=== PATIENT | female | born 1965 | race African-American/Black ===

== ENCOUNTER 2016-12-03 08:16 | Emergency (ER) | payer MEDICARE, MEDICAID ==
[~2016-12-03] VITALS: Ht 162.6 cm; Wt 105.0 kg
[~2016-12-03 08:16] MED LIST: HYDR-3366 PO; PERC10TA27 PO
[2016-12-03 08:18] VITALS: BP 154/67; PULSE 70; RESP 20; TEMP 98; O2SAT 98
[2016-12-03] MEDS ORDERED: PHEN37.54 PO (08:35)
[2016-12-03] MEDS ORDERED: PHEN37.5 (08:35)
[2016-12-03] MEDS ORDERED: CELE20TA PO (08:35)
[2016-12-03] MEDS ORDERED: METR-1 PO (08:43)
[2016-12-03] MEDS ORDERED: MUPI2%T TOPICAL (08:43)
--- NOTE | 2016-12-03 08:43 | PD ---
HPI Chief Complaint: GI Complaint Time Seen by Provider: 08:39 Travel History International Travel<30 days: No Contact w/Intl Traveler<30days: No Traveled to known affect area: No History of Present Illness HPI This is a 51-year-old female who presents to the emergency department having sustained a bite on her nose yesterday. She sees 2 little bite antonio on the left side of her nose and she's had some local swelling on the left side of her face, constant, moderate severity, associated with some itching. She also has developed diarrhea that started last evening. She says her stools been watery. She had several episodes last night and then 2 this morning. She's had some subjective chills but no fever, abdominal pain or vomiting. PFSH Past Medical History Arthritis: Yes Asthma: Yes Autoimmune Disease: No Blood Disorders: No Anxiety: No Depression: No Heart Rhythm Problems: Yes (MURMUR) Cancer: No Cardiac Catheterization: No Cardiovascular Problems: Yes (htn) High Cholesterol: No Chemotherapy: No Chest Pain: Yes Congestive Heart Failure: No COPD: No Cerebrovascular Accident: No Diabetes: Yes (hx of, resolved, per pt) Diminished Hearing: No Endocrine: Yes (hx of diabetes) Gastrointestinal Disorders: Yes GERD: Yes (HX OF) Glaucoma: No Genitourinary: No Headaches: Yes Hepatitis: No Hiatal Hernia: No Hypertension: Yes Immune Disorder: No Insomnia: Yes Musculoskeletal: Yes (BACK/NECK ) Neurologic: No Psychiatric: No Reproductive: Yes Respiratory: Yes (asthma) Immunizations Current: Yes Myocardial Infarction: No Radiation Therapy: No Seizures: No Sleep Apnea: Yes Thyroid Disease: No Menopausal: Yes : 2 Para: 1 Miscarriage: 1 Ovarian Cysts: Yes Past Surgical History Abdominal Surgery: Yes (lap cyndee,GASTRIC SLEAVE 02/2014) AICD: No Cardiac Surgery: No Section: Yes (1990) Cholecystectomy: Yes Coronary Artery Bypass Graft: No Ear Surgery: No Endocrine Surgery: No Eye Surgery: No Genitourinary Surgery: No Gynecologic Surgery: Yes (hysterectomy ) Hysterectomy: Yes Joint Replacement: No Oral Surgery: No Pacemaker: No Thoracic Surgery: No Other Surgery: Yes (GASTRIC SLEEVE 01/22/14) Social History Alcohol Use: Yes (occasionally) Tobacco Use: No Substance Use: No Allergies-Medications (Allergen,Severity, Reaction): Coded Allergies: Bentyl (Verified Allergy, Severe, MUSCLE SPASM, 12/03/16) Lortab (Verified Allergy, Intermediate, Dizziness, 12/03/16) SLURRED SPEACH,PASSED OUT Reported Meds & Prescriptions Reported Meds & Active Scripts Active Reported Phentermine (Phentermine HCl) 37.5 Mg Cap 37.5 Mg PO DAILY Celexa (Citalopram Hydrobromide) 20 Mg Tab 20 Mg PO DAILY Review of Systems Except as stated in HPI: all other systems reviewed are Neg Physical Exam Narrative GENERAL:Well appearing, no acute distress SKIN: 2 small areas of abrasion on the left nose with 3 cm of surrounding erythema and warmth HEAD: Atraumatic. Normocephalic. EYES: Pupils equal and round. No injection or drainage. ENT: Moist mucous membranes NECK: Trachea midline. CARDIOVASCULAR: Regular rate and rhythm. No murmur appreciated. RESPIRATORY: Clear to auscultation. Breath sounds equal bilaterally. GASTROINTESTINAL: Abdomen soft, non-tender, nondistended. MUSCULOSKELETAL: No obvious deformities. NEUROLOGICAL: Awake and alert. No obvious cranial nerve deficits. Moving all extremities. PSYCHIATRIC: Appropriate mood and affect; insight and judgment normal. Data Data Last Documented VS Vital Signs Date Time Temp Pulse Resp B/P Pulse Ox O2 Delivery O2 Flow Rate FiO2 12/03/16 08:36 17 12/03/16 08:18 98.0 70 154/67 98 Room Air MDM Medical Decision Making Medical Screen Exam Complete: Yes Emergency Medical Condition: Yes Interpretation(s) Afebrile, no tachycardia Differential Diagnosis C. difficile colitis, viral gastroenteritis, cellulitis, insect bite, sepsis Narrative Course This is a 51-year-old female who presents to the emergency department having sustained an insect bite to her left nose with associated cellulitis and also having concomitant initiation of diarrhea since yesterday. She did just complete a course of ciprofloxacin for sinusitis. I'm concerned that diarrhea may be C. difficile colitis. She is unable to give me a stool sample here in the emergency department. She is otherwise very well-appearing, well-hydrated and nontoxic with normal vital signs. I think she is appropriate for outpatient treatment with Flagyl and topical Bactroban for her nose. I don't think any tests are warranted at this time but if her symptoms worsen I told her to come back to the emergency department at which time we would do blood work. Diagnosis Primary Impression: Diarrhea Qualified Code: A09 - Diarrhea of presumed infectious origin Additional Impression: Insect bite Qualified Code: W57.XXXA - Insect bite, initial encounter Patient Instructions: General Instructions Additional Instructions: If you develop lightheadedness, dizziness, persistent vomiting, inability to eat , or severe abdominal pain return to the emergency department. Followup with your primary care physician in 2-3 days if your symptoms have not resolved. Wash your hands aggressively after using the restroom as to not spread your illness to others. Do not return to work until your symptoms have resolved. Med/Other Pt SpecificInfo: Prescription(s) given Scripts Mupirocin Topical (Bactroban Topical)2 % Cream1 Applic TOPICAL BID #1 TUBE Ref 0 Prov:Juliette Finn MD 12/03/16 Metronidazole (Flagyl)500 Mg Yoy407 Mg PO TID 10 Days Prov:Juliette Finn MD 12/03/16 Disposition: 01 DISCHARGE HOME Condition: Stable Juliette Finn MD Dec 03, 2016 08:43
[2016-12-03 08:49] VITALS: BP 148/77; TEMP 97.8
== END 2016-12-03 08:49 | disposition home or self-care (01) ==
LOC: NEPC 08:16
DX: A09 Infectious gastroenteritis and colitis, unspecified (principal); S00.36XA Insect bite (nonvenomous) of nose, initial encounter; L03.818 Cellulitis of other sites; I10 Essential (primary) hypertension; G47.30 Sleep apnea, unspecified; W57.XXXA Bitten or stung by nonvenomous insect and other nonvenomous arthropods, initial encounter; Z87.39 Personal history of other diseases of the musculoskeletal system and connective tissue; Z87.09 Personal history of other diseases of the respiratory system; Z86.79 Personal history of other diseases of the circulatory system; Z87.19 Personal history of other diseases of the digestive system; Z87.42 Personal history of other diseases of the female genital tract
CPT/HCPCS: 99284

== ENCOUNTER 2017-05-13 19:28 | Observation (INO) | payer MEDICARE, MEDICAID ==
[~2017-05-13] VITALS: Ht 165.1 cm; Wt 120.0 kg
[~2017-05-13 19:28] MED LIST changes: +CELE20TA PO; -HYDR-3366 PO; +METR-1 PO; +MUPI2%T TOPICAL; -PERC10TA27 PO; +PHEN37.54 PO
[2017-05-13 19:31] VITALS: BP 193/142; PULSE 68; RESP 20; TEMP 98.8; O2SAT 99
--- NOTE | 2017-05-13 19:53 | PD ---
Physical Exam Date Seen by Provider: May 13, 2017 Time Seen by Provider: 19:50 Narrative 52-year-old Afro-[place] female presents the right Department with sudden onset of the patient's, shortness of breath, and generalized weakness. Patient states his status post bariatric surgery and has had trouble with potassium being low in the past which made her feel like this. She denies pain. She continues to have chest pressure or shortness of breath however. She does have a history of asthma but does not feel wheezy. Patient denies recent fever, chills, or other symptoms. Patient is allergic to acetaminophen, dicyclomine, and hydrocodone. Vital signs are reviewed and felt to be stable. Patient is taken directly back to a medical bed. Data Data Last Documented VS Vital Signs Date Time Temp Pulse Resp B/P (MAP) Pulse Ox O2 Delivery O2 Flow Rate FiO2 05/13/17 19:31 98.8 68 20 193/142 (159) 99 Room Air [facility] Medical Record Reviewed: Yes Supervised Visit with JUAN MIGUEL: Yes Condition: Stable Krunal Baugh May 13, 2017 19:53
[2017-05-13 20:10] VITALS: BP 150/100; PULSE 77; RESP 20; O2SAT 100
[2017-05-13 20:11] VITALS: O2SAT 100
--- NOTE | 2017-05-13 20:35 | RADRPT ---
EXAM DATE/TIME: 05/13/2017 20:14 [facility] COMPARISON: CHEST SINGLE AP, July 13, 2016, 19:30. INDICATIONS : Shortness of breath and chest palpitations today. MEDICAL HISTORY : Cardiovascular disease. Hypertension. Diabetes mellitus type 2.Asthma SURGICAL HISTORY : Gastric bypass. ENCOUNTER: Initial ACUITY: 1 day PAIN SCORE: 0/10 LOCATION: Bilateral chest FINDINGS: A single view of the chest demonstrates the lungs to be symmetrically aerated without evidence of mas s, infiltrate or effusion. The cardiomediastinal contours are unremarkable. Osseous structures are intact. CONCLUSION: No evidence of acute cardiopulmonary disease. Rob Puga MD on May 13, 2017 at 20:34 Board Certified Radiologist. This report was verified electronically.
[2017-05-13 20:56] LABS: AUTOMATED NEUTROPHIL # 8.6 TH/MM3 (1.8-7.7); BASOPHIL # 0.1 TH/MM3 (0-0.2); BASOPHIL % 0.7 % (0.0-2.0); EOSINOPHIL # 0.1 TH/MM3 (0-0.4); EOSINOPHIL % 1.1 % (0.0-4.0); HEMATOCRIT 40.9 % (35.0-46.0); HEMO FLAGS DIFF FINAL; LYMPH % 19.8 % (9.0-44.0); LYMPHOCYTE # 2.4 TH/MM3 (1.0-4.8); MEAN CELL VOLUME 87.6 FL (80.0-100.0); MEAN CORPUSCULAR HEMOGLOBIN 28.1 PG (27.0-34.0); MEAN CORPUSCULAR HGB CONC 32.1 % (32.0-36.0); MONO % 7.6 % (0.0-8.0); NEUT % 70.8 % (16.0-70.0); PLATELET COUNT 279 TH/MM3 (150-450); RED BLOOD COUNT 4.67 MIL/MM3 (4.00-5.30); RED CELL DISTRIBUTION WIDTH 14.7 % (11.6-17.2); WHITE BLOOD COUNT 12.1 TH/MM3 (4.0-11.0)
--- NOTE | 2017-05-13 21:05 | PD ---
HPI Chief Complaint: Respiratory Symptoms Time Seen by Provider: 19:56 Travel History International Travel<30 days: No Contact w/Intl Traveler<30days: No Traveled to known affect area: No History of Present Illness HPI 52-year-old female that presents to the ED for evaluation of shortness of breath with exertion as well as The patient's on the chest for about 2-3 hours. Per patient she has a history of something similar in the past whenever her potassium was low. Per patient she had a gastric bypass surgery about almost 2- 3 years ago and she has issues were her potassium on occasion. Per patient she takes no medications other than [id number] vitamin D. Per patient she was getting out of school and actually at home making supper when he started having symptoms. Per patient he feels like her heart palpitates. She states that she has a history of asthma but this does not feel anything like her asthma exacerbations in the past. She denies wheezing. Per patient the symptoms get more significant when she ambulates but she also has been worsening. She denies any chest pain or pain of any kind. Not pressure. Per patient palpitations does feel like the heart is racing. She does have multiple allergies to medication. No fevers chills or sweats. No arm or leg pain. PFSH Past Medical History Arthritis: Yes Asthma: Yes Autoimmune Disease: No Blood Disorders: No Anxiety: No Depression: No Heart Rhythm Problems: Yes (MURMUR) Cancer: No Cardiac Catheterization: No Cardiovascular Problems: Yes (HTN) High Cholesterol: No Chemotherapy: No Chest Pain: Yes Congestive Heart Failure: No COPD: No Cerebrovascular Accident: No Diabetes: Yes (hx of, resolved, per pt) Patient Takes Glucophage: No Diminished Hearing: No Endocrine: Yes (hx of diabetes) Gastrointestinal Disorders: Yes GERD: Yes (HX OF) Glaucoma: No Genitourinary: No Headaches: Yes Hepatitis: No Hiatal Hernia: No Hypertension: Yes Immune Disorder: No Insomnia: Yes Musculoskeletal: Yes (BACK/NECK ) Neurologic: No Psychiatric: No Reproductive: Yes Respiratory: Yes (asthma) Immunizations Current: Yes Myocardial Infarction: No Radiation Therapy: No Seizures: No Sleep Apnea: Yes Thyroid Disease: No ?: Not Menopausal: Yes : 2 Para: 1 Miscarriage: 1 Ovarian Cysts: Yes Past Surgical History Abdominal Surgery: Yes (lap cyndee,GASTRIC SLEAVE 02/2014) AICD: No Cardiac Surgery: No Section: Yes (1990) Cholecystectomy: Yes Coronary Artery Bypass Graft: No Ear Surgery: No Endocrine Surgery: No Eye Surgery: No Genitourinary Surgery: No Gynecologic Surgery: Yes (hysterectomy ) Hysterectomy: Yes Joint Replacement: No Oral Surgery: No Pacemaker: No Thoracic Surgery: No Other Surgery: Yes (GASTRIC SLEEVE 01/22/14) Family History Family Myocardial Infarction: Yes Social History Alcohol Use: Yes (occasionally) Tobacco Use: No Substance Use: No Allergies-Medications (Allergen,Severity, Reaction): Coded Allergies: dicyclomine (Unverified Allergy, Severe, MUSCLE SPASM, 05/13/17) acetaminophen (Unverified Allergy, Intermediate, Dizziness, 05/13/17) SLURRED SPEACH,PASSED OUT hydrocodone (Unverified Allergy, Intermediate, Dizziness, 05/13/17) SLURRED SPEACH,PASSED OUT Reported Meds & Prescriptions Reported Meds & Active Scripts Active Review of Systems Except as stated in HPI: all other systems reviewed are Neg Physical Exam Narrative GENERAL: SKIN: Warm and dry. HEAD: Atraumatic. Normocephalic. EYES: Pupils equal and round. No scleral icterus. No injection or drainage. ENT: No nasal bleeding or discharge. Mucous membranes pink and moist. Tongue is midline. No uvula deviation. NECK: Trachea midline. No JVD. CARDIOVASCULAR: Regular rate and rhythm. No murmurs, S3, S4. RESPIRATORY: No accessory muscle use. Clear to auscultation. Breath sounds equal bilaterally. GASTROINTESTINAL: Abdomen soft, non-tender, nondistended. Hepatic and splenic margins not palpable. MUSCULOSKELETAL: Extremities without clubbing, cyanosis, or edema. No obvious deformities. Full range of motion of the upper and lower extremities bilaterally. 2+ pulses bilaterally. NEUROLOGICAL: Awake and alert. No obvious cranial nerve deficits. Motor grossly within normal limits. Five out of 5 muscle strength in the arms and legs. Normal speech. PSYCHIATRIC: Appropriate mood and affect; insight and judgment normal. Data Data Last Documented VS Vital Signs Date Time Temp Pulse Resp B/P (MAP) Pulse Ox O2 Delivery O2 Flow Rate FiO2 05/13/17 20:11 100 Room Air 05/13/17 20:10 77 20 05/13/17 19:31 98.8 Orders Orders Complete Blood Count With Diff (05/13/17 20:08) Comprehensive Metabolic Panel (05/13/17 20:08) Ckmb (Isoenzyme) Profile (05/13/17 20:08) Troponin I (05/13/17 20:08) Prothrombin Time / Inr (Pt) (05/13/17 20:08) Act Partial Throm Time (Ptt) (05/13/17 20:08) D-Dimer (05/13/17 20:08) Magnesium (Mg) (05/13/17 20:08) Thyroid Stimulating Hormone (05/13/17 20:08) Chest, Single Ap (05/13/17 20:08) Iv Access Insert/Monitor (05/13/17 20:08) Ecg Monitoring (05/13/17 20:08) Oximetry (05/13/17 20:08) Ct Pulmonary Angiogram (05/13/17 ) Electrocardiogram (05/13/17 20:08) CKMB (05/13/17 20:10) CKMB% (05/13/17 20:10) Iohexol 350 Inj (Omnipaque 350 Inj) (05/13/17 21:52) Admit Order (Ed Use Only) (05/13/17 22:14) Activity Bed Rest With Brp (05/13/17 22:14) Vital Signs (Adult) Q4H (05/13/17 22:14) Cardiac Rhythm .As Directed (05/13/17 22:14) Notify Dr: Other .PRN (05/13/17 22:14) Notify Dr. Parameters (05/13/17 22:14) Resp Oxygen Nasal Cannula (05/13/17 ) Ckmb (Isoenzyme) Profile (05/13/17 23:10) Ckmb (Isoenzyme) Profile (05/14/17 02:10) Troponin I (05/13/17 23:10) Troponin I (05/14/17 02:10) Electrocardiogram (05/13/17 23:10) Electrocardiogram (05/14/17 02:10) ^ Obtain (05/13/17 22:14) Sodium Chloride 0.9% Flush (Ns Flush) (05/13/17 22:15) Sodium Chloride 0.9% Flush (Ns Flush) (05/14/17 09:00) Vp Product Marketing / Telemetry MICHEL.Q8H (05/13/17 22:14) Labs Laboratory Tests Test 05/13/17 20:10 White Blood Count 12.1 TH/MM3 Red Blood Count 4.67 MIL/MM3 Hemoglobin 13.1 GM/DL Hematocrit 40.9 % Mean Corpuscular Volume 87.6 FL Mean Corpuscular Hemoglobin 28.1 PG Mean Corpuscular Hemoglobin Concent 32.1 % Red Cell Distribution Width 14.7 % Platelet Count 279 TH/MM3 Mean Platelet Volume 8.8 FL Neutrophils (%) (Auto) 70.8 % Lymphocytes (%) (Auto) 19.8 % Monocytes (%) (Auto) 7.6 % Eosinophils (%) (Auto) 1.1 % Basophils (%) (Auto) 0.7 % Neutrophils # (Auto) 8.6 TH/MM3 Lymphocytes # (Auto) 2.4 TH/MM3 Monocytes # (Auto) 0.9 TH/MM3 Eosinophils # (Auto) 0.1 TH/MM3 Basophils # (Auto) 0.1 TH/MM3 CBC Comment DIFF FINAL Differential Comment Prothrombin Time 10.1 SEC Prothromb Time International Ratio 0.9 RATIO Activated Partial Thromboplast Time 26.6 SEC D-Dimer Quantitative (PE/DVT) 0.89 MG/L FEU Blood Urea Nitrogen 10 MG/DL Creatinine 1.03 MG/DL Random Glucose 131 MG/DL Total Protein 7.6 GM/DL Albumin 3.4 GM/DL Calcium Level 9.2 MG/DL Magnesium Level 1.9 MG/DL Alkaline Phosphatase 106 U/L Aspartate Amino Transf (AST/SGOT) 32 U/L Alanine Aminotransferase (ALT/SGPT) 25 U/L Total Bilirubin 0.3 MG/DL Sodium Level 143 MEQ/L Potassium Level 3.5 MEQ/L Chloride Level 110 MEQ/L Carbon Dioxide Level 25.8 MEQ/L Anion Gap 7 MEQ/L Estimat Glomerular Filtration Rate 68 ML/MIN Total Creatine Kinase 127 U/L Creatine Kinase MB 1.4 NG/ML Troponin I LESS THAN 0.02 NG/ML Thyroid Stimulating Hormone 3rd Gen 1.450 uIU/ML MDM Medical Decision Making Medical Screen Exam Complete: Yes Emergency Medical Condition: Yes Medical Record Reviewed: Yes Interpretation(s) EKG shows sinus rhythm with no sign of acute ischemia or arrhythmia. Some supraventricular premature contractions noted. CBC & BMP Diagram 05/13/17 20:10 Total Protein 7.6, Albumin 3.4, Calcium Level 9.2, Magnesium Level 1.9, Alkaline Phosphatase 106, Aspartate Amino Transf (AST/SGOT) 32, Alanine Aminotransferase (ALT/SGPT) 25, Total Bilirubin 0.3 D-dimer positive, coags within normal limits. Troponin and CK-MB negative. Last Impressions Chest X-Ray 05/13/172007 Signed Impressions: Service Date/Time: April 20:14 - CONCLUSION: No evidence of acute cardiopulmonary disease. Rob Puga MD CT Angiography 05/13/17 0000 Signed Impressions: Service Date/Time: April 21:43 - CONCLUSION: No pulmonary embolus or other acute abnormality demonstrated. Rob Puga MD Differential Diagnosis Palpitations versus electrolyte abnormality versus PE versus pneumonia versus a typical chest pain versus ACS Narrative Course 52-year-old female that presents to the ED for evaluation of palpitations and shortness of breath. Patient was properly examined and was found to have signs and symptoms of concurrent only at this time. Patient's vitals and physical exam are reassuring at this time. EKG did show PVCs but than that no sign of acute ischemia or arrhythmia. At this time labs and imaging will be ordered. Labs and imaging showed no sign of acute disease at this time. D-dimer was positive so CTA was ordered. CTA was negative. Patient for the most part feels well. No chest pain at this time but she does state that whenever she exerts is of she gets the shortness of breath. This could be angina equivalent. At this time chest pains and admission was offered to the patient and she agreed to it for a stress test. She has not had a stress test more than 3-4 years. She does have risk factors including all history of diabetes and hypertension and family history. Patient agreed to the admission. This was discussed in my attending Dr. Perales who agrees with this plan. Diagnosis Primary Impression: Chest pain in adult Admitting Information Admitting Physician Requests: Yaron Parker May 13, 2017 21:05
[2017-05-13 21:11] LABS: APTT (PATIENT) 26.6 SEC (24.3-30.1); INTERNATIONAL NORMALIZED RATIO 0.9 RATIO; PROTHROMBIN TIME - PATIENT 10.1 SEC (9.8-11.6)
[2017-05-13 21:28] LABS: ALT (GPT) 25 U/L (10-53)
[2017-05-13 21:37] LABS: ALKALINE PHOSPHATASE 106 U/L (45-117); ANION GAP 7 MEQ/L (5-15); AST (GOT) 32 U/L (15-37); BICARBONATE 25.8 MEQ/L (21.0-32.0); BLOOD UREA NITROGEN 10 MG/DL (7-18); CHLORIDE 110 MEQ/L (98-107); CREATINE KINASE 127 U/L (26-192); GLOMERULAR FILTRATION RATE 68 ML/MIN (>89); MAGNESIUM 1.9 MG/DL (1.5-2.5); POTASSIUM 3.5 MEQ/L (3.5-5.1); SODIUM (NA) 143 MEQ/L (136-145); TOTAL BILIRUBIN ADULT 0.3 MG/DL (0.2-1.0)
[2017-05-13 21:50] LABS: CKMB 1.4 NG/ML (0.5-3.6)
[2017-05-13] MEDS ORDERED: IOHEXOL 350 MG/ML 10 ML VIAL (for RAD DIAG) IVCONTRAST ONE (21:52)
--- NOTE | 2017-05-13 22:03 | RADRPT ---
EXAM DATE/TIME: 05/13/2017 21:43 [facility] COMPARISON: CT THORAX W CONTRAST, July 13, 2016, 19:19. INDICATIONS : Acute shortness of breath. Elevated d-dimer. IV CONTRAST: 70 cc Omnipaque 350 (iohexol) IV RADIATION DOSE: 25.08 CTDIvol (mGy) MEDICAL HISTORY : Hypertension. Diabetes mellitus type 2. SURGICAL HISTORY : Cholecystectomy. ENCOUNTER: Initial ACUITY: 1 day PAIN SCALE: 0/10 LOCATION: chest TECHNIQUE: Volumetric scanning of the chest was performed using a pulmonary embolism protocol MIP images were re constructed. Using automated exposure control and adjustment of the mA and/or kV according to patien t size, radiation dose was kept as low as reasonably achievable to obtain optimal diagnostic quality images. DICOM format image data is available electronically for review and comparison. Follow-up recommendations for detected pulmonary nodules are based at a minimum on nodule size and pa tient risk factors according to Fleischner Society Guidelines. FINDINGS: PULMONARY ARTERIES: No filling defects are seen in the pulmonary arteries through the segmental level. LUNGS: There is no consolidation or pneumothorax . No concerning pulmonary nodule is visualized. PLEURAE: There is no pleural thickening or pleural effusion. MEDIASTINUM: There is good visualization of the great vessels of the middle mediastinum. No evidence of mediastin al or hilar adenopathy/mass. MUSCULOSKELETAL: Within normal limits for patient age. MISCELLANEOUS: The visualized upper abdominal organs demonstrate no acute abnormality. Patient is status post gastri c bypass and cholecystectomy. CONCLUSION: No pulmonary embolus or other acute abnormality demonstrated. Rob Puga MD on May 13, 2017 at 22:00 Board Certified Radiologist. This report was verified electronically.
[2017-05-13] MEDS ORDERED: SODIUM CHLORIDE 0.9% FLUSH 10 ML FLUSH IV FLUSH PRN (22:15)
[2017-05-13 22:42] VITALS: O2SAT 98
[2017-05-13 23:37] LABS: CREATINE KINASE 101 U/L (26-192)
[2017-05-13 23:49] LABS: CKMB 1.1 NG/ML (0.5-3.6)
[2017-05-13 23:54] VITALS: BP 126/58; PULSE 70; RESP 18; TEMP 98.5; O2SAT 97
[2017-05-14 05:00] VITALS: BP 126/72; PULSE 63; RESP 18; TEMP 98.8; O2SAT 97
[2017-05-14 07:12] VITALS: PULSE 48
[2017-05-14 08:00] VITALS: BP 139/89; PULSE 58; RESP 20; TEMP 98.2; O2SAT 99
--- NOTE | 2017-05-14 08:32 | HHI.DCPOC ---
Discharge Care Plan Diagnosis: (1) SOB (shortness of breath) Goals to Promote Your Health * To prevent worsening of your condition and complications * To maintain your health at the optimal level Directions to Meet Your Goals Take your medications as prescribed Follow your dietary instruction Follow activity as directed Keep your appointments as scheduled Take your immunizations and boosters as scheduled If your symptoms worsen call your PCP, if no PCP go to Urgent Care Center or Emergency Room Smoking is Dangerous to Your Health. Avoid second hand smoke Call the 24-hour hour crisis hotline for domestic abuse at [place] May 14, 2017 08:32
--- NOTE | 2017-05-14 08:59 | HHI.HP ---
[facility] Primary Care Physician Andres Krishna MD Chief Complaint Shortness of breath History of Present Illness This is a 52-year-old female that presents to ED with history gastric bypass and history of diabetes and hypertension however they both resolved after losing weight. Patient complains of developing shortness of breath around 6:30 yesterday evening after eating dinner which was chicken salad. States last about 2 hours. It was not exertional. She became concerned and came to the ED to be evaluated. Denies history of heart disease. States she was seeing Dr. Sapp prior to having gastric bypass an abnormal stress testing approximate 4 years ago and sees him on an as-needed basis. She denies chest discomfort. Denies nausea or diaphoresis. Denies recent illness. Denies fevers or chills. Has not been coughing. Review of Systems General: Patient denies fevers, chills recent, and recent travel. HEENT: Patient denies headache, sore throat, difficulty swallowing. Cardiovascular: Denies chest discomfort. Denies sensation of heart beating rapidly or irregularly. No syncope. Denies diaphoresis. Respiratory: Denies shortness of breath or inspirational chest discomfort. Denies coughing wheezing or hemoptysis. GI: Patient denies nausea, vomiting, diarrhea, abdominal pain, bloody stools. Musculoskeletal: Patient denies joint pain or edema. Denies calf pain or edema. Neurovascular: Patient denies numbness, tingling, weakness in extremities. Denies headache. Endocrine: Denies polyuria and polydipsia. Hematologic: Denies easy bruising. Skin: Denies rash or itching. Past Family Social History Allergies: Coded Allergies: dicyclomine (Unverified Allergy, Severe, MUSCLE SPASM, 05/13/17) acetaminophen (Unverified Allergy, Intermediate, Dizziness, 05/13/17) SLURRED SPEACH,PASSED OUT hydrocodone (Unverified Allergy, Intermediate, Dizziness, 05/13/17) SLURRED SPEACH,PASSED OUT Past Medical History Patient states she had diabetes and hypertension there both resolved after losing weight after having gastric bypass. Chronic back pain. Denies hyperlipidemia and CAD. Past Surgical History Gastric bypass in 2013. Reported Medications Reported Meds & Active Scripts Active Active Ordered Medications Current Medications Medications (Trade) Dose Ordered Sig/Yves Route Start Time Stop Time Status Last Admin (NS Flush) 2 ml UNSCH PRN IV FLUSH 05/13/17 22:15 (NS Flush) 2 ml BID IV FLUSH 05/14/17 09:00 05/14/17 08:13 Family History States that her father had late onset CAD. Her mother at 78 of congestive heart failure but she states that that was related to adverse reaction to medication. Social History Lifetime nonsmoker. Rarely has alcohol. Denies illicit drugs. Physical Exam Vital Signs Vital Signs Date Time Temp Pulse Resp B/P (MAP) Pulse Ox O2 Delivery O2 Flow Rate FiO2 05/14/17 08:00 98.2 58 20 139/89 (106) 99 05/14/17 07:12 48 05/14/17 05:00 98.8 63 18 126/72 (90) 97 05/13/17 23:54 98.5 70 18 126/58 (80) 97 05/13/17 22:42 98 05/13/17 20:11 100 Room Air 05/13/17 20:10 77 20 150/100 (117) 100 Room Air 05/13/17 19:31 98.8 68 20 193/142 (159) 99 Room Air Physical Exam GENERAL: This is a well-nourished, well-developed patient, in no apparent distress. Patient speaks in clear complete sentences. Patient is pleasant. HEENT: Head is atraumatic and normocephalic. Neck is supple without lymphadenopathy and trachea is midline. No JVD or carotid bruits. CARDIOVASCULAR: Grade 2 systolic murmur left sternal border. Regular rate and rhythm without gallops or rubs. RESPIRATORY: Clear to auscultation. Breath sounds equal bilaterally. No wheezes , rales, or rhonchi. Chest wall is nontender. No use of accessory muscles. GASTROINTESTINAL: Abdomen is nontender, nondistended. Abdomen soft. No obvious pulsatile mass or bruit. No CVA tenderness. Strong femoral pulses bilaterally. Normal bowel sounds in all quadrants. MUSCULOSKELETAL: Discomfort in her lower back when sitting upright which patient states is chronic. No spinous process point tenderness. Patient is moving upper and lower extremities freely. No calf tenderness or edema, no Homans sign. Strong pulses in upper and lower extremities. NEUROLOGICAL: Patient is alert and oriented. Cranial nerves 2-12 are grossly intact. No focal deficits and speech is clear. SKIN: No rash and turgor is normal. Laboratory Laboratory Tests Test 05/13/17 20:10 05/13/17 23:03 05/14/17 02:03 White Blood Count 12.1 Red Blood Count 4.67 Hemoglobin 13.1 Hematocrit 40.9 Mean Corpuscular Volume 87.6 Mean Corpuscular Hemoglobin 28.1 Mean Corpuscular Hemoglobin Concent 32.1 Red Cell Distribution Width 14.7 Platelet Count 279 Mean Platelet Volume 8.8 Neutrophils (%) (Auto) 70.8 Lymphocytes (%) (Auto) 19.8 Monocytes (%) (Auto) 7.6 Eosinophils (%) (Auto) 1.1 Basophils (%) (Auto) 0.7 Neutrophils # (Auto) 8.6 Lymphocytes # (Auto) 2.4 Monocytes # (Auto) 0.9 Eosinophils # (Auto) 0.1 Basophils # (Auto) 0.1 CBC Comment DIFF FINAL Differential Comment Prothrombin Time 10.1 Prothromb Time International Ratio 0.9 Activated Partial Thromboplast Time 26.6 D-Dimer Quantitative (PE/DVT) 0.89 Blood Urea Nitrogen 10 Creatinine 1.03 Random Glucose 131 Total Protein 7.6 Albumin 3.4 Calcium Level 9.2 Magnesium Level 1.9 Alkaline Phosphatase 106 Aspartate Amino Transf (AST/SGOT) 32 Alanine Aminotransferase (ALT/SGPT) 25 Total Bilirubin 0.3 Sodium Level 143 Potassium Level 3.5 Chloride Level 110 Carbon Dioxide Level 25.8 Anion Gap 7 Estimat Glomerular Filtration Rate 68 Total Creatine Kinase 127 101 90 Creatine Kinase MB 1.4 1.1 Troponin I LESS THAN 0.02 0.03 0.02 Thyroid Stimulating Hormone 3rd Gen 1.450 Result Diagram: 05/13/17200905/13/172009 Imaging Last 48 hours Impressions Chest X-Ray 05/13/172007 Signed Impressions: Service Date/Time: April 20:14 - CONCLUSION: No evidence of acute cardiopulmonary disease. Rob Puga MD CT Angiography 05/13/17 0000 Signed Impressions: Service Date/Time: April 21:43 - CONCLUSION: No pulmonary embolus or other acute abnormality demonstrated. Rob Puga MD Course EKGs have sinus rhythm without significant ST segment depressions or elevations. Nonspecific inferior T-wave changes. Caprini VTE Risk Assessment Caprini VTE Risk Assessment: No/Low Risk (score <= 1) Caprini Risk Assessment Model Point Value = 1 Point Value = 2 Point Value = 3 Point Value = 5 Age 41-60 Minor surgery BMI > 25 kg/m2 Swollen legs Varicose veins or History of unexplained or recurrent spontaneous Oral contraceptives or hormone replacement Sepsis (< 1 month) Serious lung disease, including pneumonia (< 1 month) Abnormal pulmonary function Acute myocardial infarction Congestive heart failure (< 1 month) History of inflammatory bowel disease Medical patient at bed rest Age 61-74 Arthroscopic surgery Major open surgery (> 45 min) Laparoscopic surgery (> 45 min) Malignancy Confined to bed (> 72 hours) Immobilizing plaster cast Central venous access Age >= 75 History of VTE Family history of VTE Factor V Leiden Prothrombin [id number] Lupus anticoagulant Anticardiolipin antibodies Elevated serum homocysteine Heparin-induced thrombocytopenia Other congenital or acquired thrombophilia Stroke (< 1 month) Elective arthroplasty Hip, pelvis, or leg fracture Acute spinal cord injury (< 1 month) Prophylaxis Regimen Total Risk Factor Score Risk Level Prophylaxis Regimen 0-1 Low Early ambulation 2 Moderate Order ONE of the following: *Sequential Compression Device (SCD) *Heparin 5000 units SQ BID 3-4 Higher Order ONE of the following medications: *Heparin 5000 units SQ TID *Enoxaparin/Lovenox 40 mg SQ daily (WT < 150 kg, CrCl > 30 mL/min) *Enoxaparin/Lovenox 30 mg SQ daily (WT < 150 kg, CrCl > 10-29 mL/min) *Enoxaparin/Lovenox 30 mg SQ BID (WT < 150 kg, CrCl > 30 mL/min) AND/OR *Sequential Compression Device (SCD) 5 or more Highest Order ONE of the following medications: *Heparin 5000 units SQ TID (Preferred with Epidurals) *Enoxaparin/Lovenox 40 mg SQ daily (WT < 150 kg, CrCl > 30 mL/min) *Enoxaparin/Lovenox 30 mg SQ daily (WT < 150 kg, CrCl > 10-29 mL/min) *Enoxaparin/Lovenox 30 mg SQ BID (WT < 150 kg, CrCl > 30 mL/min) AND *Sequential Compression Device (SCD) Assessment and Plan Assessment and Plan * Shortness breath: Patient has had serial cardiac enzymes and EKGs for ruling out purposes. Head CTA to rule out pulmonary embolus in the ED. Patient seen by Dr. Sarmad Basilio of cardiology and the chest is under and this does not appear to be cardiac in nature and will be discharged home at this time. Patient should follow-up with her primary care physician. She does have a heart murmur which she is aware of. She should follow-up with her refuge worker every 3-5 years repeat echo, she has been advised to follow back with Dr. Sapp for this. Patient is stable at this time. Codey Long May 14, 2017 08:59
[2017-05-14] MEDS ORDERED: SODIUM CHLORIDE 0.9% FLUSH 10 ML FLUSH IV FLUSH SCH (09:00)
--- NOTE | 2017-05-14 14:22 | EKG ---
Date Performed: 05/13/2017 Time Performed: 23:36:42 PTAGE: 52 years EKG: Sinus rhythm BORDERLINE ECG PREVIOUS TRACING : 05/13/2017 20.08 Since previous tracing, no significant change noted DOCTOR: Sarmad Basilio Interpretating Date/Time 05/14/2017 14:21:35
--- NOTE | 2017-05-14 14:23 | EKG ---
Date Performed: 05/13/2017 Time Performed: 20:08:01 PTAGE: 52 years EKG: Sinus rhythm WITH OCCASIONAL SUPRAVENTRICULAR PREMATURE COMPLEXES LEFT VENTRICULAR HYPERTROPHY ABNORMAL ECG PREVIOUS TRACING : 07/13/2016 17.02 Since previous tracing, no significant change noted DOCTOR: Sarmad Basilio Interpretating Date/Time 05/14/2017 14:22:13
--- NOTE | 2017-05-14 14:24 | EKG ---
Date Performed: 05/14/2017 Time Performed: 03:08:32 PTAGE: 52 years EKG: SINUS BRADYCARDIA BORDERLINE ECG PREVIOUS TRACING : 05/13/2017 23.36 Since previous tracing, no significant change noted DOCTOR: Sarmad Basilio Interpretating Date/Time 05/14/2017 14:23:32
== END 2017-05-14 09:22 | disposition home or self-care (01) ==
LOC: NEPE 19:28 → NEDA 22:17 → NEPFCDU 23:09
PROVIDERS: ADMIT Internal Medicine Interventional Cardiology; ATTEND Internal Medicine Interventional Cardiology
DX: R07.89 Other chest pain (principal); R00.2 Palpitations; I10 Essential (primary) hypertension; I49.3 Ventricular premature depolarization; E11.9 Type 2 diabetes mellitus without complications; G47.30 Sleep apnea, unspecified; J45.909 Unspecified asthma, uncomplicated; K21.9 Gastro-esophageal reflux disease without esophagitis; Z88.6 Allergy status to analgesic agent; Z98.84 Bariatric surgery status
CPT/HCPCS: 71010; 71275; 80053; 82550; 82552; 83735; 84443; 84484; 85025; 85379; 85610; 85730; 93005; 99285; G0378; Q9967

== ENCOUNTER 2017-06-24 09:10 | Emergency (ER) | payer MEDICARE, OTHER ==
[~2017-06-24] VITALS: Ht 165.1 cm; Wt 121.0 kg
[2017-06-24 09:24] VITALS: BP 165/85; PULSE 67; RESP 15; TEMP 98.8; O2SAT 98
[2017-06-24] MEDS ORDERED: BACL10TA PO (09:24)
[2017-06-24] MEDS ORDERED: HYDR-3583 PO (09:24)
[2017-06-24] MEDS ORDERED: PHEN-556 PO (09:25)
[2017-06-24 09:30] VITALS: O2SAT 99
[2017-06-24] MEDS ORDERED: MECLIZINE HCL 25 MG TAB PO ONE (09:30)
--- NOTE | 2017-06-24 09:37 | PD ---
HPI Chief Complaint: Dizziness Time Seen by Provider: 09:23 Travel History International Travel<30 days: No Contact w/Intl Traveler<30days: No Traveled to known affect area: No History of Present Illness HPI 52-year-old female complains of headache and dizziness. Patient states the symptoms started this morning. Patient states that she was having a bowel movement and leaned forward . Patient states that she started having a turcios of pressure to the head and started having persistent headache and dizziness subsequently. Patient denies any visual change. Patient denies any neck pain. Patient denies any nausea vomiting. Patient denies any pain or shortness of breath. Patient denies abdominal pain. Patient denies any focal weakness or numbness of extremity. Patient has history of vertigo in the past. Patient has been eating well. Patient states that she is not on any routine medication. Patient has history of gastric bypass surgery in the past. Patient states that she had neck and back pain yesterday and she took hydrocodone and baclofen for that. Patient also took phentermine yesterday for her weight loss. PFSH Past Medical History Arthritis: Yes Asthma: Yes Autoimmune Disease: No Blood Disorders: No Anxiety: No Depression: No Heart Rhythm Problems: Yes (MURMUR) Cancer: No Cardiac Catheterization: No Cardiovascular Problems: Yes High Cholesterol: No Chemotherapy: No Chest Pain: Yes Congestive Heart Failure: No COPD: No Cerebrovascular Accident: No Diabetes: No Diminished Hearing: No Endocrine: Yes (hx of diabetes) Gastrointestinal Disorders: Yes GERD: Yes (HX OF) Glaucoma: No Genitourinary: No Headaches: Yes Hepatitis: No Hiatal Hernia: No Hypertension: Yes Immune Disorder: No Insomnia: Yes Musculoskeletal: Yes (BACK/NECK ) Neurologic: No Psychiatric: No Reproductive: Yes Respiratory: Yes (asthma) Immunizations Current: Yes Myocardial Infarction: No Radiation Therapy: No Seizures: No Sleep Apnea: Yes Thyroid Disease: No Menopausal: Yes : 2 Para: 1 Miscarriage: 1 Ovarian Cysts: Yes Past Surgical History Abdominal Surgery: Yes (lap cyndee,GASTRIC SLEAVE 02/2014) AICD: No Cardiac Surgery: No Section: Yes (1990) Cholecystectomy: Yes Coronary Artery Bypass Graft: No Ear Surgery: No Endocrine Surgery: No Eye Surgery: No Genitourinary Surgery: No Gynecologic Surgery: Yes (hysterectomy ) Hysterectomy: Yes Joint Replacement: No Oral Surgery: No Pacemaker: No Thoracic Surgery: No Other Surgery: Yes (GASTRIC SLEEVE 01/22/14) Social History Alcohol Use: Yes (occasionally) Tobacco Use: No Substance Use: No Allergies-Medications (Allergen,Severity, Reaction): Coded Allergies: dicyclomine (Unverified Allergy, Severe, MUSCLE SPASM, 06/24/17) acetaminophen (Unverified Allergy, Intermediate, Dizziness, 06/24/17) SLURRED SPEACH,PASSED OUT hydrocodone (Unverified Allergy, Intermediate, Dizziness, 06/24/17) SLURRED SPEACH,PASSED OUT Reported Meds & Prescriptions Reported Meds & Active Scripts Active Reported Lomaira (Phentermine HCl) 8 Mg Tab 37.5 Mg PO DAILY Baclofen 10 Mg Tab 10 Mg PO Q8HR PRN Hydrocodone-Acetaminophen 10-325 mg Tab 1 Tab PO Q4H PRN Review of Systems General / Constitutional: No: Fever Eyes: No: Visual changes HENT: Positive: Headaches, Lightheadedness Cardiovascular: No: Chest Pain or Discomfort Respiratory: No: Shortness of Breath Gastrointestinal: No: Abdominal Pain Genitourinary: No: Dysuria Musculoskeletal: No: Pain Skin: No Rash Neurologic: No: Weakness Psychiatric: No: Depression Endocrine: No: Polydipsia Hematologic/Lymphatic: No: Easy Bruising Physical Exam Narrative GENERAL: Well-nourished, well-developed patient. SKIN: Focused skin assessment warm/dry. HEAD: Normocephalic. EYES: No scleral icterus. No injection or drainage. Pupils 2 mm equal reactive. NECK: Supple, trachea midline. No JVD or lymphadenopathy. No meningismus CARDIOVASCULAR: Regular rate and rhythm without murmurs, gallops, or rubs. RESPIRATORY: Breath sounds equal bilaterally. No accessory muscle use. GASTROINTESTINAL: Abdomen soft, non-tender, nondistended. MUSCULOSKELETAL: No cyanosis, or edema. BACK: Nontender without obvious deformity. No CVA tenderness. Neurologic exam normal. Data Data Last Documented VS Vital Signs Date Time Temp Pulse Resp B/P (MAP) Pulse Ox O2 Delivery O2 Flow Rate FiO2 06/24/17 09:30 99 06/24/17 09:24 98.8 67 15 Room Air Orders Orders Complete Blood Count With Diff (06/24/17 09:26) Basic Metabolic Panel (Bmp) (06/24/17 09:26) Ct Brain W/O Iv Contrast(Rout) (06/24/17 09:26) Iv Access Insert/Monitor (06/24/17 09:26) Ecg Monitoring (06/24/17 09:26) Oximetry (06/24/17 09:26) Meclizine (Antivert) (06/24/17 09:30) Labs Laboratory Tests Test 06/24/17 09:50 White Blood Count 9.4 TH/MM3 Red Blood Count 4.83 MIL/MM3 Hemoglobin 14.3 GM/DL Hematocrit 41.8 % Mean Corpuscular Volume 86.6 FL Mean Corpuscular Hemoglobin 29.6 PG Mean Corpuscular Hemoglobin Concent 34.1 % Red Cell Distribution Width 14.7 % Platelet Count 329 TH/MM3 Mean Platelet Volume 9.2 FL Neutrophils (%) (Auto) 73.2 % Lymphocytes (%) (Auto) 17.2 % Monocytes (%) (Auto) 7.6 % Eosinophils (%) (Auto) 1.2 % Basophils (%) (Auto) 0.8 % Neutrophils # (Auto) 6.9 TH/MM3 Lymphocytes # (Auto) 1.6 TH/MM3 Monocytes # (Auto) 0.7 TH/MM3 Eosinophils # (Auto) 0.1 TH/MM3 Basophils # (Auto) 0.1 TH/MM3 CBC Comment DIFF FINAL Differential Comment Blood Urea Nitrogen 11 MG/DL Creatinine 0.89 MG/DL Random Glucose 80 MG/DL Calcium Level 9.2 MG/DL Sodium Level 140 MEQ/L Potassium Level 4.6 MEQ/L Chloride Level 106 MEQ/L Carbon Dioxide Level 26.8 MEQ/L Anion Gap 7 MEQ/L Estimat Glomerular Filtration Rate 81 ML/MIN [facility] Medical Decision Making Medical Screen Exam Complete: Yes Emergency Medical Condition: Yes Interpretation(s) 10:[address] scan of the brain negative acute pathology. CBC within normal limit. BNP within normal limit. Differential Diagnosis Differential diagnosis including vertigo, electrolyte imbalance, dehydration, intracranial pathology. Narrative Course 52-year-old female with sudden onset of headache and dizziness. History of vertigo in the past. Meclizine 25 mg by mouth given. Diagnosis Primary Impression: Acute onset of severe vertigo Additional Impression: Cephalgia Qualified Codes: R51 - Headache Patient Instructions: General Instructions Additional Instructions: Meclizine as needed for dizziness. Tylenol for headache. Follow-up with personal physician. Return if persistent problem or worse. Med/Other Pt SpecificInfo: Prescription(s) given Scripts Meclizine (Meclizine) 25 Mg Tab 25 MG PO TID Y for VERTIGO, #21 TAB 0 Refills Prov: Willi Hgigins MD 06/24/17 Disposition: 01 DISCHARGE HOME Condition: Stable Willi Higgins MD Jun 24, 2017 09:37
[2017-06-24 10:12] LABS: AUTOMATED NEUTROPHIL # 6.9 TH/MM3 (1.8-7.7); BASOPHIL # 0.1 TH/MM3 (0-0.2); BASOPHIL % 0.8 % (0.0-2.0); EOSINOPHIL # 0.1 TH/MM3 (0-0.4); EOSINOPHIL % 1.2 % (0.0-4.0); HEMATOCRIT 41.8 % (35.0-46.0); HEMO FLAGS DIFF FINAL; LYMPH % 17.2 % (9.0-44.0); LYMPHOCYTE # 1.6 TH/MM3 (1.0-4.8); MEAN CELL VOLUME 86.6 FL (80.0-100.0); MEAN CORPUSCULAR HEMOGLOBIN 29.6 PG (27.0-34.0); MEAN CORPUSCULAR HGB CONC 34.1 % (32.0-36.0); MONO % 7.6 % (0.0-8.0); NEUT % 73.2 % (16.0-70.0); PLATELET COUNT 329 TH/MM3 (150-450); RED BLOOD COUNT 4.83 MIL/MM3 (4.00-5.30); RED CELL DISTRIBUTION WIDTH 14.7 % (11.6-17.2); WHITE BLOOD COUNT 9.4 TH/MM3 (4.0-11.0)
--- NOTE | 2017-06-24 10:30 | RADRPT ---
EXAM DATE/TIME: 06/24/2017 10:09 [facility] COMPARISON: CT BRAIN W/O CONTRAST, July 13, 2016, 19:10. INDICATIONS : Dizziness and headache since this morning. RADIATION DOSE: 37.32 CTDIvol (mGy) MEDICAL HISTORY : Cardiovascular disease. Hypertension. SURGICAL HISTORY : Cholecystectomy. Hysterectomy.Gastric sleeve. ENCOUNTER: Initial ACUITY: 1 day PAIN SCALE: 5/10 LOCATION: cranial TECHNIQUE: Multiple contiguous axial images were obtained of the head. Using automated exposure control and adj ustment of the mA and/or kV according to patient size, radiation dose was kept as low as reasonably a chievable to obtain optimal diagnostic quality images. DICOM format image data is available electro nically for review and comparison. FINDINGS: CEREBRUM: The ventricles are normal for age. No evidence of midline shift, mass lesion, hemorrhage or acute in farction. No extra-axial fluid collections are seen. POSTERIOR FOSSA: The cerebellum and brainstem are intact. The 4th ventricle is midline. The cerebellopontine angle i s unremarkable. EXTRACRANIAL: The visualized portion of the orbits is intact. SKULL: The calvaria is intact. No evidence of skull fracture. CONCLUSION: Normal examination for a patient of this age. No significant change has occurred. Julio C Atkinson MD on June 24, 2017 at 10:28 Board Certified Radiologist. This report was verified electronically.
[2017-06-24 10:31] LABS: BICARBONATE 26.8 MEQ/L (21.0-32.0)
[2017-06-24 10:33] LABS: POTASSIUM 4.6 MEQ/L (3.5-5.1)
[2017-06-24] MEDS ORDERED: MECL-62 PO (10:43)
== END 2017-06-24 11:08 | disposition home or self-care (01) ==
LOC: NEPD 09:10
DX: R42 Dizziness and giddiness (principal); R51 Headache; J45.909 Unspecified asthma, uncomplicated; I10 Essential (primary) hypertension
CPT/HCPCS: 70450; 80048; 85025

== ENCOUNTER 2017-09-22 11:30 | Emergency (ER) | payer MEDICARE, OTHER ==
[~2017-09-22] VITALS: Ht 162.6 cm; Wt 116.5 kg
[~2017-09-22 11:30] MED LIST changes: +BACL10TA PO; -CELE20TA PO; +HYDR-3583 PO; +MECL-62 PO; -METR-1 PO; -MUPI2%T TOPICAL; +PHEN-556 PO; -PHEN37.54 PO
[2017-09-22 11:32] VITALS: BP 143/87; PULSE 77; RESP 16; TEMP 98.6; O2SAT 98
[2017-09-22] MEDS ORDERED: PRED20 PO (12:06)
[2017-09-22] MEDS ORDERED: CIPR250T52 PO (12:06)
[2017-09-22] MEDS ORDERED: CEPH-460 PO (12:19)
--- NOTE | 2017-09-22 12:20 | PD ---
HPI Chief Complaint: Laceration/Skin Injury Time Seen by Provider: 12:02 Travel History International Travel<30 days: Yes Contact w/Intl Traveler<30days: Yes Name of Country Traveled to: [place] [id number] Traveled to known affect area: Yes History of Present Illness HPI This is a 52-year-old female here with avulsion laceration to the distal aspect of the left index finger. She was cutting vegetables with a knife when she cut the finger prior to arrival. Bleeding is well-controlled. No paresthesia or weakness of the extremity. Tetanus immunization is up-to-date. Symptom severity is mild. Pain is aggravated by palpation of the area. No alleviating factors. PFSH Past Medical History Arthritis: Yes Asthma: Yes Autoimmune Disease: No Blood Disorders: No Anxiety: No Depression: No Heart Rhythm Problems: Yes (MURMUR) Cancer: No Cardiac Catheterization: No Cardiovascular Problems: Yes High Cholesterol: No Chemotherapy: No Chest Pain: Yes Congestive Heart Failure: No COPD: No Cerebrovascular Accident: No Diabetes: No Diminished Hearing: No Endocrine: Yes (hx of diabetes) Gastrointestinal Disorders: Yes GERD: Yes (HX OF) Glaucoma: No Genitourinary: No Headaches: Yes Hepatitis: No Hiatal Hernia: No Hypertension: Yes Immune Disorder: No Insomnia: Yes Musculoskeletal: Yes (BACK/NECK ) Neurologic: No Psychiatric: No Reproductive: Yes Respiratory: Yes (asthma) Immunizations Current: Yes Myocardial Infarction: No Radiation Therapy: No Seizures: No Sleep Apnea: Yes Thyroid Disease: No ?: Not Menopausal: Yes : 2 Para: 1 Miscarriage: 1 Ovarian Cysts: Yes Past Surgical History Abdominal Surgery: Yes (lap cyndee,GASTRIC SLEAVE 02/2014) AICD: No Cardiac Surgery: No Section: Yes (1990) Cholecystectomy: Yes Coronary Artery Bypass Graft: No Ear Surgery: No Endocrine Surgery: No Eye Surgery: No Genitourinary Surgery: No Gynecologic Surgery: Yes (hysterectomy ) Hysterectomy: Yes Joint Replacement: No Oral Surgery: No Pacemaker: No Thoracic Surgery: No Other Surgery: Yes (GASTRIC SLEEVE 01/22/14) Family History Family Hypercholesterolemia: Yes Social History Alcohol Use: Yes (occasionally) Tobacco Use: No Substance Use: No Allergies-Medications (Allergen,Severity, Reaction): Coded Allergies: dicyclomine (Unverified Allergy, Severe, MUSCLE SPASM, 09/22/17) acetaminophen (Unverified Allergy, Intermediate, Dizziness, 09/22/17) SLURRED SPEACH,PASSED OUT hydrocodone (Unverified Allergy, Intermediate, Dizziness, 09/22/17) SLURRED SPEACH,PASSED OUT Reported Meds & Prescriptions Reported Meds & Active Scripts Active Reported Cipro (Ciprofloxacin HCl) 250 Mg Tab 250 Mg PO BID Prednisone 20 Mg Tab 20 Mg PO DIRECTED 40 MG twice a day x 3 days, then 20 MG daily x 3 days, then 10 MG daily x 3 days Review of Systems Except as stated in HPI: all other systems reviewed are Neg Physical Exam Narrative GENERAL: Alert and well-appearing female. SKIN: Warm and dry. HEAD: Normocephalic. EYES: No injection or drainage. NECK: Supple MUSCULOSKELETAL: No cyanosis. She has a 1 cm avulsion laceration to the distal lateral aspect of the left index finger. The laceration is superficial in nature. Bleeding is well-controlled. No bone visualized or palpated. She has normal sensation and brisk cap refill. She is able to flex and extend the digit. Data Data Last Documented VS Vital Signs Date Time Temp Pulse Resp B/P (MAP) Pulse Ox O2 Delivery O2 Flow Rate FiO2 09/22/17 11:32 98.6 77 16 143/87 (105) 98 Room Air MDM Medical Decision Making Medical Screen Exam Complete: Yes Emergency Medical Condition: Yes Differential Diagnosis Avulsion laceration, tendon injury, ligament injury Narrative Course This is a 52-year-old female with a evulsion type laceration to the distal aspect of the left index finger. The digit is neurovascularly intact. No tendon injury suspected. No bone is visualized or palpated. The laceration is superficial in nature. The area was extensively cleaned. Dressing was applied. She was instructed to follow-up with primary doctor for recheck in 2 days. Diagnosis Primary Impression: Finger laceration Qualified Codes: S61.211A - Laceration without foreign body of left index finger without damage to nail, initial encounter Referrals: Daisha Dennis MD Primary Care Physician Additional Instructions: Keep the dressing in place for the next 24 hours. Cleansed the area daily with soap and water. Apply thin layer of antibiotic ointment and redress the wound. Follow-up with her doctor in 2 days for recheck. Return if he developed new or worsening symptoms. Scripts Cephalexin (Keflex) 500 Mg Cap 500 MG PO Q6H for Infection for 5 Days, #20 CAP 0 Refills Prov: Rossana Owens 09/22/17 Disposition: 01 DISCHARGE HOME Condition: Stable Rossana Owens Sep 22, 2017 12:20
== END 2017-09-22 12:51 | disposition home or self-care (01) ==
LOC: NEPK 11:30
DX: S61.211A Laceration without foreign body of left index finger without damage to nail, initial encounter (principal); W26.0XXA Contact with knife, initial encounter; Y93.G1 Activity, food preparation and clean up
CPT/HCPCS: 99283

== ENCOUNTER 2017-10-21 05:13 | Emergency (ER) | payer MEDICARE, OTHER ==
[~2017-10-21] VITALS: Ht 165.1 cm; Wt 120.0 kg
[~2017-10-21 05:13] MED LIST changes: -BACL10TA PO; +CEPH-460 PO; +CIPR250T52 PO; -HYDR-3583 PO; -MECL-62 PO; -PHEN-556 PO; +PRED20 PO
[2017-10-21 05:15] VITALS: BP 137/77; PULSE 64; RESP 16; TEMP 98.5; O2SAT 99
[2017-10-21] MEDS ORDERED: ORPHENADRINE INJ 60 MG/2 ML AMP IM ONE (05:30)
[2017-10-21] MEDS ORDERED: DEXAMETHASONE SOD PHOS 20 MG/5 ML VIAL IM ONE (05:30)
[2017-10-21] MEDS ORDERED: LIDOCAINE HCL 5% PATCH T-DERMAL ONE (05:30)
[2017-10-21] MEDS ORDERED: KETOROLAC TROMETHAMINE 60 MG/2 ML (IM) VIAL IM ONE (05:30)
--- NOTE | 2017-10-21 05:40 | PD ---
HPI Chief Complaint: Injury Time Seen by Provider: 05:21 Travel History International Travel<30 days: No Contact w/Intl Traveler<30days: No Traveled to known affect area: No History of Present Illness HPI Patient is a 52-year-old female presenting to emergency department for evaluation of right neck pain that radiates down her arm. Patient states it started yesterday, it started abruptly. She states that the pain started upon awakening. There was no injury or trauma. Patient reports the pain is 8 out of 10. She took hydrocodone and baclofen last night with no relief of symptoms. Patient reports a history of cervical and lumbar disc disease. She denies any weakness or numbness in her extremities. Pain is exacerbated with movement, she reports limited range of motion with rotation of her neck. She has no fever meningeal signs to report. PFSH Past Medical History Arthritis: Yes Asthma: Yes Heart Rhythm Problems: Yes (MURMUR) Chest Pain: Yes Gastrointestinal Disorders: Yes GERD: Yes Headaches: Yes Hypertension: Yes Insomnia: Yes Reproductive: Yes Immunizations Current: Yes Sleep Apnea: Yes Tetanus Vaccination: < 5 Years Influenza Vaccination: Yes ?: Not Menopausal: Yes : 2 Para: 1 Miscarriage: 1 Ovarian Cysts: Yes Past Surgical History Abdominal Surgery: Yes (lap cyndee,GASTRIC SLEAVE 02/2014) AICD: No Cardiac Surgery: No Section: Yes (1990) Cholecystectomy: Yes Coronary Artery Bypass Graft: No Ear Surgery: No Endocrine Surgery: No Eye Surgery: No Genitourinary Surgery: No Gynecologic Surgery: Yes (hysterectomy ) Hysterectomy: Yes Joint Replacement: No Oral Surgery: No Pacemaker: No Thoracic Surgery: No Other Surgery: Yes (GASTRIC SLEEVE 01/22/14) Family History Family Myocardial Infarction: Yes Family Hypercholesterolemia: Yes Social History Alcohol Use: Yes (occasionally) Tobacco Use: No Substance Use: No Allergies-Medications (Allergen,Severity, Reaction): Coded Allergies: dicyclomine (Unverified Allergy, Severe, MUSCLE SPASM, 10/21/17) acetaminophen (Unverified Allergy, Intermediate, Dizziness, 10/21/17) SLURRED SPEACH,PASSED OUT hydrocodone (Unverified Allergy, Intermediate, Dizziness, 10/21/17) SLURRED SPEACH,PASSED OUT Reported Meds & Prescriptions Reported Meds & Active Scripts Active Keflex (Cephalexin) 500 Mg Cap 500 Mg PO Q6H 5 Days Reported Cipro (Ciprofloxacin HCl) 250 Mg Tab 250 Mg PO BID Prednisone 20 Mg Tab 20 Mg PO DIRECTED 40 MG twice a day x 3 days, then 20 MG daily x 3 days, then 10 MG daily x 3 days Review of Systems Except as stated in HPI: all other systems reviewed are Neg Musculoskeletal: Positive: Myalgias, Cramping, Pain Physical Exam Narrative GENERAL: Overweight, well-developed, alert -[place] female. Presenting in no acute distress although she appears uncomfortable. SKIN: Warm and dry. HEAD: Normocephalic. EYES: No scleral icterus. No injection or drainage. NECK: Supple, trachea midline. No JVD or lymphadenopathy. Tenderness to palpation paraspinal musculature and cervical region on the right side. No meningeal signs noted. CARDIOVASCULAR: Regular rate and rhythm without murmurs, gallops, or rubs. RESPIRATORY: Breath sounds equal bilaterally. No accessory muscle use. GASTROINTESTINAL: Abdomen soft, non-tender, nondistended. MUSCULOSKELETAL: No cyanosis, or edema. BACK: Nontender without obvious deformity. No CVA tenderness. Data Data Last Documented VS Vital Signs Date Time Temp Pulse Resp B/P (MAP) Pulse Ox O2 Delivery O2 Flow Rate FiO2 10/21/17 05:15 98.5 64 16 137/77 (97) 99 Orders Orders Ketorolac Inj (Toradol Inj) (10/21/17 05:30) Orphenadrine Inj (Norflex Inj) (10/21/17 05:30) Dexamethasone Inj (Decadron Inj) (10/21/17 05:30) Lidocaine 5% Patch.12 Hr (Lidoderm 5% Pa (10/21/17 05:30) MDM Medical Decision Making Medical Screen Exam Complete: Yes Emergency Medical Condition: Yes Interpretation(s) Vital Signs Date Time Temp Pulse Resp B/P (MAP) Pulse Ox O2 Delivery O2 Flow Rate FiO2 10/21/17 05:15 98.5 64 16 137/77 (97) 99 Differential Diagnosis Torticollis versus muscle spasm versus muscle strain versus tendinitis versus other Narrative Course Patient is a well-appearing 52-year-old female presenting with 1 day of radiating neck pain. Patient's vital signs are stable. Patient will be given Toradol, Norflex, dexamethasone and a Lidoderm patch will be applied to the affected area. Will reassess patient's pain, imaging is not indicated at this time as there was no injury or trauma. Patient has no focal deficits. Patient reassessed and resting more comfortably. 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 She was encouraged to continue gentle range of motion exercises, apply warm heat to the affected area , avoid exacerbating activities, avoid bed rest. She is encouraged to take medication as needed and as directed for pain. She verbalized understanding these instructions. She is encouraged to return if any new or worsening symptoms occurred. Patient stable for discharge. 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
[2017-10-21] MEDS ORDERED: LIDO1ADH4 TOPICAL (06:25)
[2017-10-21] MEDS ORDERED: PRED50 PO (06:25)
[2017-10-21] MEDS ORDERED: KETO10 PO (06:25)
[2017-10-21 06:26] VITALS: BP 146/87; PULSE 60; RESP 20; O2SAT 97
== END 2017-10-21 06:49 | disposition home or self-care (01) ==
LOC: NEPD 05:13
DX: M62.838 Other muscle spasm (principal); M54.2 Cervicalgia
CPT/HCPCS: 96372; 99283; J1100; J1885; J2360

== ENCOUNTER → 2018-01-19 | Outpatient (CLI) | payer MEDICARE, OTHER ==
[~2018-01-19] MED LIST changes: +KETO10 PO; +LIDO1ADH4 TOPICAL; +PRED50 PO
[2018-01-19 13:07] LABS: HEMATOCRIT 39.4 % (35.0-46.0); HEMOGLOBIN 13.1 GM/DL (11.6-15.3); MEAN CELL VOLUME 84.7 FL (80.0-100.0); MEAN CORPUSCULAR HEMOGLOBIN 28.2 PG (27.0-34.0); MEAN CORPUSCULAR HGB CONC 33.3 % (32.0-36.0); MEAN PLATELET VOLUME 8.9 FL (7.0-11.0); PLATELET COUNT 254 TH/MM3 (150-450); RED BLOOD COUNT 4.66 MIL/MM3 (4.00-5.30); RED CELL DISTRIBUTION WIDTH 14.9 % (11.6-17.2)
[2018-01-19 13:24] LABS: ALBUMIN 3.5 GM/DL (3.4-5.0); CHOLESTEROL 191 MG/DL (120-200); IRON (FE) 95 MCG/DL (50-170); PHOSPHORUS 3.7 MG/DL (2.5-4.9); TRIGLYCERIDES 113 MG/DL (42-150)
[2018-01-19 13:50] LABS: % SATURATION IRON PROFILE 22.8 % (20-50); CHOLESTEROL/ HDL RATIO 3.41 RATIO; FERRITIN 22 NG/ML (8-252); HDL CHOLESTEROL 55.9 MG/DL (40.0-60.0); LDL CHOLESTEROL 113 MG/DL (0-99); TOTAL IRON BINDING CAPACITY 416 MCG/DL (250-450)
[2018-01-19 14:03] LABS: FOLATE GREATER THAN 20.0 NG/ML (3.1-17.5)
[2018-01-21 13:50] LABS: ACLYCARNITINE/FREE CARNITINE 0.2 (0.1-0.8); ACYLCARNITINE 7 nmol/mL (5-30); CARNITINE FREE 41 nmol/mL (25-54); CARNITINE TOTAL 48 nmol/mL (34-78)
== END ==
LOC: CLAB 11:44
PROVIDERS: ATTEND Nurse Practitioner
DX: R63.8 Other symptoms and signs concerning food and fluid intake (principal); I10 Essential (primary) hypertension; G62.9 Polyneuropathy, unspecified; R63.5 Abnormal weight gain; Z71.3 Dietary counseling and surveillance
CPT/HCPCS: 36415; 80061; 82040; 82306; 82379; 82525; 82607; 82728; 82746; 83540; 83550; 84100; 84134; 84425; 84550; 85027